=== PATIENT | female | born 1990 ===

== ENCOUNTER 2018-10-14 12:23 | Inpatient (IN) ==
[2018-10-14 13:36] LABS: Basophils % 0.5 %; Eosinophils # 0.1 K/mcL (0.0-0.6); Eosinophils % 1.4 %; Hematocrit 40.7 % (35.3-44.9); Hemoglobin 13.5 g/dL (11.5-15.4); Immature Granulocytes % 0.2 % (0-4); Lymphocytes # 2.5 K/mcL (0.6-4.6); Lymphocytes % 43.1 %; Mean Corpuscular HGB Conc 33.2 g/dL (31.6-35.5); Mean Corpuscular Hemoglobin 29.9 pg (28.0-33.3); Mean Corpuscular Volume 90.2 fL (83.0-100.0); Mean Platelet Volume 10.5 fL (9.4-12.4); Monocytes # 0.4 K/mcL (0.0-1.3); Monocytes % 7.3 %; Neutrophils # 2.8 K/mcL (1.6-8.9); Platelet Count 251 K/mcL (140-400); Red Blood Count 4.51 M/mcL (3.82-4.97); Red Cell Distribution Width 13.2 % (11.5-14.5); Segmented Neutrophils % 47.5 %; White Blood Count 5.9 K/mcL (4.3-11.1)
[2018-10-14 13:54] LABS: BUN/Creatinine Ratio 19 (6-26); Blood Urea Nitrogen 11 mg/dL (6-20); Calcium 9.6 mg/dL (8.6-10.3); Carbon Dioxide 27 mEq/L (23-29); Chloride 105 mEq/L (98-107); Glucose 90 mg/dL (70-105); Osmolality,Calculated 291 (280-300); Potassium 3.7 mEq/L (3.5-5.1); Sodium 141 mEq/L (136-145); eGFR For African Americans > 60 (> 60); eGFR For Non-African Americans > 60 (> 60)
[2018-10-14 14:01] LABS: Bilirubin,Urine Negative (Negative); Blood,Urine Large (Negative); Clarity,Urine Clear (Clear); Color,Urine Yellow (Yellow); Glucose,Urine (UA) Normal (Normal); Ketones,Urine Negative (Negative); Leukocyte Esterase,Urine Negative (Negative); Nitrite,Urine Negative (Negative); Protein,Urine Negative (Neg-Trace); Specific Gravity,Urine 1.008 (1.010-1.025); Urobilinogen,Urine Normal (Normal)
[2018-10-14 14:02] LABS: Bacteria,Urine None Seen per hpf (None-Few); Hyaline Casts,Urine None Seen per lpf (None-Few); Squamous Epithelial Cell,Urine Few per lpf (None-Few); WBC,Urine 0-3 per hpf (0-3)
[2018-10-14] MEDS ORDERED: Naloxone 0.4 MG/ML INJ IVP PRN (16:17)
[2018-10-14] MEDS ORDERED: Ibuprofen 400 MG TABLET PO PRN (16:31)
[2018-10-14 17:03] LABS: Magnesium 1.9 mg/dL (1.6-2.6); Phosphorous 3.1 mg/dL (2.7-4.5)
[2018-10-14] MEDS: Ringers Solution, Lactated 1,000 ML IVC SCH (19:32)
[2018-10-14] MEDS: Nicotine 14 MG PATCH.TD24 TD SCH (19:33)
[2018-10-15 07:08] LABS: Basophils % 0.3 %; Eosinophils # 0.1 K/mcL (0.0-0.6); Eosinophils % 2.1 %; Hematocrit 39.4 % (35.3-44.9); Immature Granulocytes % 0.3 % (0-4); Lymphocytes # 2.5 K/mcL (0.6-4.6); Lymphocytes % 36.8 %; Mean Corpuscular Hemoglobin 30.4 pg (28.0-33.3); Mean Corpuscular Volume 92.1 fL (83.0-100.0); Mean Platelet Volume 11.4 fL (9.4-12.4); Monocytes # 0.6 K/mcL (0.0-1.3); Monocytes % 8.3 %; Neutrophils # 3.5 K/mcL (1.6-8.9); Platelet Count 231 K/mcL (140-400); Red Blood Count 4.28 M/mcL (3.82-4.97); Red Cell Distribution Width 13.6 % (11.5-14.5); Segmented Neutrophils % 52.2 %; White Blood Count 6.7 K/mcL (4.3-11.1)
[2018-10-15 07:27] LABS: Chol/HDL Ratio 4.1 (0-4.9)
[2018-10-15 07:29] LABS: BUN/Creatinine Ratio 17 (6-26); Blood Urea Nitrogen 11 mg/dL (6-20); Carbon Dioxide 27 mEq/L (23-29); Chloride 107 mEq/L (98-107); Glucose 98 mg/dL (70-105); Osmolality,Calculated 291 (280-300); Potassium 3.9 mEq/L (3.5-5.1); Sodium 141 mEq/L (136-145); eGFR For African Americans > 60 (> 60); eGFR For Non-African Americans > 60 (> 60)
[2018-10-15 07:43] LABS: Thyroid Stimulating Hormone 0.706 mcIU/mL (0.340-5.600)
[2018-10-15] MEDS: Nicotine 14 MG PATCH.TD24 TD SCH (09:15)
[2018-10-15] MEDS: Ringers Solution, Lactated 1,000 ML IVC SCH (11:14)
[2018-10-15] MEDS: Acetaminophen 325 MG TABLET PO PRN (11:17)
[2018-10-15 11:19] LABS: Estimated Average Glucose 105 mg/dl
[2018-10-15 16:26] LABS: Magnesium 1.9 mg/dL (1.6-2.6)
[2018-10-15 16:27] LABS: Troponin I < 0.03 ng/mL (< 0.04)
[2018-10-16] MEDS ORDERED: Regadenoson 0.4 MG/5 ML SYRINGE IVP ONE (06:51)
[2018-10-16] MEDS: Nicotine 14 MG PATCH.TD24 TD SCH (09:43)
[2018-10-16] MEDS: Aspirin 81 MG TAB.CHEW PO SCH (15:04)
[2018-10-16] MEDS: Acetaminophen 325 MG TABLET PO PRN (22:29)
[2018-10-17] MEDS ORDERED: 0.9 % Sodium Chloride 1,000 ML ONE (07:08)
[2018-10-17] MEDS ORDERED: Verapamil 5 MG/2 ML VIAL ONE (07:08)
[2018-10-17] MEDS ORDERED: Heparin 1,000 UNITS/500 mL 500 ML ONE (07:08)
[2018-10-17] MEDS ORDERED: *HR* Heparin 10,000 UNIT/10 ML VIAL ONE (07:08)
[2018-10-17] MEDS ORDERED: Nitroglycerin 1,000 MCG/10 ML VIAL IV ONE (07:08)
[2018-10-17] MEDS ORDERED: Iopamidol 125 ML INFUS..BTL ONE ×2 (07:08→08:27)
[2018-10-17] MEDS: Aspirin 81 MG TAB.CHEW PO SCH (07:50)
[2018-10-17] MEDS: Nicotine 14 MG PATCH.TD24 TD SCH (07:54)
[2018-10-17] MEDS ORDERED: *HR* FentaNYL (PF) 100 MCG/2 ML VIAL ONE (08:05)
[2018-10-17] MEDS ORDERED: *HR* Midazolam HCl 2 MG/2 ML VIAL ONE (08:05)
[2018-10-17] MEDS: Acetaminophen 325 MG TABLET PO PRN (11:37)
[2018-10-17] MEDS ORDERED: Nitroglycerin 1 INCH/GM PACKET TP ONE (12:01)
[2018-10-17 14:23] VITALS: BP 108/57
== END 2018-10-17 16:36 | disposition home or self-care (01) | DRG 287 ==
LOC: EMEROOARM 12:23 → 2NENU 12:23 → SUATTDRO 16:34 → 2NENU 16:35
PROVIDERS: ADMIT Internal Medicine Nephrology; ATTEND Internal Medicine